=== PATIENT | male | born 1940 | race Caucasian/White ===

== ENCOUNTER 2018-07-11 10:08 | Inpatient (IN) | payer MEDICARE, OTHER ==
[~2018-07-11] VITALS: Ht 175.3 cm; Wt 85.9 kg
[2018-07-11] MEDS ORDERED: IV NORMAL SALINE 1,000ML 1,000 ML IV SCH (10:12)
[2018-07-11 10:32] LABS: BASO # 0.1 x10^3/uL (0.0-0.2); BASO % 1 % (0-3); EOS # 0.1 x10^3/uL (0.0-0.7); EOS % 1 % (0-3); HEMATOCRIT 45.7 % (39.0-53.0); HEMOGLOBIN 15.6 g/dL (13.0-17.5); LYMPH # 2.6 x10^3/uL (1.0-4.8); LYMPH % 33 % (24-48); MEAN CORPUSCULAR HEMOGLOBIN 30 pg (25-35); MEAN CORPUSCULAR HGB CONC 34 g/dL (31-37); MEAN CORPUSCULAR VOLUME 88 fL (79-100); MONO # 0.8 x10^3/uL (0.0-1.1); MONO % 10 % (0-9); NEUT # 4.1 x10^3uL (1.8-7.7); NEUT % 54 % (31-73); PLATELET COUNT 273 x10^3/uL (140-400); RED BLOOD COUNT 5.21 x10^6/uL (4.30-5.70); RED CELL DISTRIBUTION WIDTH 14.1 % (11.5-14.5); WHITE BLOOD COUNT 7.7 x10^3/uL (4.0-11.0)
--- NOTE | 2018-07-11 10:35 | PHYS DOC ---
Adult General Chief Complaint Chief Complaint: DIZZY/LIGHT HEADED HPI HPI Patient is a 78 year old male who presents with complaint of dizziness. Patient states that his symptoms are approximately 30 minutes ago. Patient states that while eating breakfast he suddenly felt very dizzy and felt like he was going to pass out. States that this feeling has continued since onset. Also notes that he has been having intermittent pain and tingling in his left upper extremity which seems to have worsened since onset of symptoms. Admits to previous history of coronary artery disease and has had 2 coronary stents placed in the past. Does have history of left bundle branch block. Denies any chest pain, shortness of breath, diaphoresis, or nausea with symptoms currently. 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 Has not taking medications since onset. States that he is currently on Plavix but no other blood thinners. Review of Systems Review of Systems Constitutional: Denies fever or chills [] Eyes: Denies change in visual acuity, redness, or eye pain [] HENT: Denies nasal congestion or sore throat [] Respiratory: Denies cough or shortness of breath [] Cardiovascular: Dizziness, near syncope, denies chest pain or edema[] GI: Denies abdominal pain, nausea, vomiting, bloody stools or diarrhea [] : Denies dysuria or hematuria [] Musculoskeletal: Denies back pain or joint pain [] Integument: Denies rash or skin lesions [] Neurologic: Numbness and tingling in left upper extremity, denies headache or focal weakness [] All other systems were reviewed and found to be within normal limits, except as documented in this note. Current Medications Current Medications Current Medications Medications (Trade) Dose Ordered Sig/[facility] Start Time Stop Time Status Last Admin Dose Admin Sodium Chloride 1,000 ml @ 125 mls/hr Q8H 07/11/18 10:12 07/11/18 18:11 UNV Physical Exam Physical Exam Constitutional: Alert, afebrile, no acute distress. [] HENT: Normocephalic, atraumatic, bilateral external ears normal, oropharynx moist, no oral exudates, nose normal. [] Eyes: PERRLA, EOMI, conjunctiva normal, no discharge. [] Neck: Normal range of motion, no tenderness, supple, no stridor. [] Cardiovascular: Bradycardia, regular rhythm, no murmur [] Lungs & Thorax: Bilateral breath sounds clear to auscultation [] Abdomen: Bowel sounds normal, soft, no tenderness, no masses, no pulsatile masses. [] Skin: Warm, dry, no erythema, no rash. [] Back: No tenderness, no CVA tenderness. [] Extremities: No tenderness, no cyanosis, no clubbing, ROM intact, no edema. [] Neurologic: Alert and oriented X 3, normal motor function, normal sensory function, no focal deficits noted. [] Current Patient Data Vital Signs Vital Signs Date Time Temp Pulse Resp B/P (MAP) Pulse Ox O2 Delivery O2 Flow Rate FiO2 07/11/18 10:37 51 20 95 Room Air Lab Results Laboratory Tests Test 07/11/18 10:14 White Blood Count 7.7 x10^3/uL Red Blood Count 5.21 x10^6/uL Hemoglobin 15.6 g/dL Hematocrit 45.7 % Mean Corpuscular Volume 88 fL Mean Corpuscular Hemoglobin 30 pg Mean Corpuscular Hemoglobin Concent 34 g/dL Red Cell Distribution Width 14.1 % Platelet Count 273 x10^3/uL Neutrophils (%) (Auto) 54 % Lymphocytes (%) (Auto) 33 % Monocytes (%) (Auto) 10 % Eosinophils (%) (Auto) 1 % Basophils (%) (Auto) 1 % Neutrophils # (Auto) 4.1 x10^3uL Lymphocytes # (Auto) 2.6 x10^3/uL Monocytes # (Auto) 0.8 x10^3/uL Eosinophils # (Auto) 0.1 x10^3/uL Basophils # (Auto) 0.1 x10^3/uL Prothrombin Time 11.0 SEC Prothromb Time International Ratio 1.1 Activated Partial Thromboplast Time 26 SEC Sodium Level 141 mmol/L Potassium Level 4.5 mmol/L Chloride Level 104 mmol/L Carbon Dioxide Level 31 mmol/L Anion Gap 6 Blood Urea Nitrogen 23 mg/dL Creatinine 1.2 mg/dL Estimated GFR (Cockcroft-Gault) 58.9 BUN/Creatinine Ratio 19 Glucose Level 109 mg/dL Calcium Level 9.6 mg/dL Magnesium Level 2.0 mg/dL Total Bilirubin 0.7 mg/dL Aspartate Amino Transf (AST/SGOT) 29 U/L Alanine Aminotransferase (ALT/SGPT) 24 U/L Alkaline Phosphatase 46 U/L Creatine Kinase 198 U/L Creatine Kinase MB (Mass) 4.9 ng/mL Creatine Kinase MB Relative Index 2.5 % Troponin I Quantitative < 0.017 ng/mL Total Protein 7.4 g/dL Albumin 4.2 g/dL Albumin/Globulin Ratio 1.3 Current Medications Medications (Trade) Dose Ordered Sig/Keila Route PRN Reason Start Time Stop Time Status Last Admin Dose Admin Sodium Chloride 1,000 ml @ 125 mls/hr Q8H IV 07/11/18 10:12 07/11/18 18:11 07/11/18 10:51 EKG EKG Interpreted by me: Heart rate 49, sinus bradycardia, left bundle branch block, no acute ST changes.[] Radiology/Procedures Radiology/Procedures [address] [address] IMAGING REPORT Signed PATIENT: HEENA BURCH ACCOUNT: [id number] : 1940 LOCATION: ER AGE: 78 SEX: M EXAM STATUS: REG ER ORD. PHYSICIAN: ANYA BENITEZ MD REASON: Dizziness, lightheaded, left arm tingling PROCEDURE: CT HEAD WO CONTRAST CT HEAD INDICATION: Dizziness, lightheaded, left arm tingling COMPARISON: None Available. Exposure: One or more of the following individualized dose reduction techniques were utilized for this examination: 1. Automated exposure control 2. Adjustment of the mA and/or kV according to patient size 3. Use of iterative reconstruction technique TECHNIQUE: 5 mm contiguous axial images were obtained from the skull base to the vertex in both bone and soft tissue algorithm. FINDINGS: Mild bilateral periventricular white matter hypodensities likely chronic small vessel ischemic disease. No evidence of acute intracranial hemorrhage. No extra-axial fluid collections. No mass effect or midline shift. Ventricular size is appropriate. Basal cisterns are patent. No fractures identified.Carbone-white differentiation is preserved.Globes and orbits are within normal limits. Paranasal sinuses and mastoid air cells are clear. IMPRESSION: No acute intracranial findings. Electronically signed by: Cedric Rubin MD (07/11/2018 10:54 AM) [facility] DICTATED AND SIGNED BY: CEDRIC RUBIN MD DATE: 07/11/18 1054 CC: ANYA BENITEZ MD; PCP,UNKNOWN ~ [place] [address] IMAGING REPORT Signed PATIENT: HEENA BURCH ACCOUNT: [id number] : 1940 LOCATION: ER AGE: 78 SEX: M EXAM STATUS: REG ER ORD. PHYSICIAN: ANYA BENITEZ MD REASON: Dizziness, lightheaded, left arm tingling PROCEDURE: PORTABLE CHEST 1V EXAM: CHEST 1 VIEW History: Dizziness, lightheadedness COMPARISON: None available. TECHNIQUE: Single portable radiograph of the chest FINDINGS: The cardiac silhouette is unremarkable. The lungs are clear bilaterally. The costophrenic sulci are clear and well demarcated. IMPRESSION: No radiographic evidence of an acute cardiopulmonary process. Electronically signed by: Cedric Rubin MD (07/11/2018 10:56 AM) [facility] DICTATED AND SIGNED BY: CEDRIC RUBIN MD DATE: 07/11/18 105 CC: ANYA BENITEZ MD; PCP,UNKNOWN ~ [] Course & Med Decision Making Course & Med Decision Making Pertinent Labs and Imaging studies reviewed. (See chart for details) Patient was started on IV fluids in the emergency department. Initial lab work and imaging show no apparent acute abnormality, however patient does note that he is continuing to feel dizziness symptoms at this time. Given patient's cardiac history, I feel the most appropriate the patient be admitted to the hospital for rule out of acute cardiac process and for additional neurology consult. I spoke with Dr. Ambriz of cardiology who agreed with initial assessment and will follow with patient in hospital. I also spoke with Dr. Vela of neurology who agreed to follow with patient in hospital for evaluation. Patient admitted to Dr. Woods. Rin Disclaimer Rin Disclaimer This electronic medical record was generated, in whole or in part, using a voice recognition dictation system. Departure Departure: Impression: Primary Impression: Near syncope Additional Impressions: History of coronary artery disease Bradycardia History of left bundle branch block Disposition: ADMITTED INPATIENT Admitting Physician: Other Condition: STABLE Referrals: PCP,UNKNOWN (PCP) Problem Qualifiers ANYA BENITEZ MD Jul 11, 2018 10:35
[2018-07-11 10:57] LABS: ALBUMIN 4.2 g/dL (3.4-5.0); ALBUMIN/GLOBULIN RATIO 1.3 (1.0-1.7); CALCIUM 9.6 mg/dL (8.5-10.1); CREATININE 1.2 mg/dL (0.7-1.3); GFR 58.9; POTASSIUM 4.5 mmol/L (3.5-5.1); TOTAL BILIRUBIN 0.7 mg/dL (0.2-1.0); TOTAL PROTEIN 7.4 g/dL (6.4-8.2)
--- NOTE | 2018-07-11 10:57 | RAD ---
CT HEAD INDICATION: Dizziness, lightheaded, left arm tingling COMPARISON: None Available. Exposure: One or more of the following individualized dose reduction techniques were utilized for this examination: 1. Automated exposure control 2. Adjustment of the mA and/or kV according to patient size 3. Use of iterative reconstruction technique TECHNIQUE: 5 mm contiguous axial images were obtained from the skull base to the vertex in both bone and soft tissue algorithm. FINDINGS: Mild bilateral periventricular white matter hypodensities likely chronic small vessel ischemic disease. No evidence of acute intracranial hemorrhage. No extra-axial fluid collections. No mass effect or midline shift. Ventricular size is appropriate. Basal cisterns are patent. No fractures identified.Carbone-white differentiation is preserved.Globes and orbits are within normal limits. Paranasal sinuses and mastoid air cells are clear. IMPRESSION: No acute intracranial findings. Electronically signed by: Cedric Rubin MD (07/11/2018 10:54 AM) [facility]
--- NOTE | 2018-07-11 10:58 | RAD ---
EXAM: CHEST 1 VIEW History: Dizziness, lightheadedness COMPARISON: None available. TECHNIQUE: Single portable radiograph of the chest FINDINGS: The cardiac silhouette is unremarkable. The lungs are clear bilaterally. The costophrenic sulci are clear and well demarcated. IMPRESSION: No radiographic evidence of an acute cardiopulmonary process. Electronically signed by: Cedric Rubin MD (07/11/2018 10:56 AM) [facility]
[2018-07-11] MEDS: IV NORMAL SALINE 1,000ML 1,000 ML IV SCH (12:50)
[2018-07-11] MEDS ORDERED: ONDANSETRON PF 4 MG/2 ML VIAL. IV PRN (13:00)
[2018-07-11] MEDS ORDERED: NITROGLYCERIN SUBLINGUAL 0.4 MG BOTTLE OF 25. SL PRN ×2 (13:00→17:15)
[2018-07-11] MEDS ORDERED: ACETAMINOPHEN 325 MG TABLET PO PRN (13:00)
[2018-07-11 13:20] VITALS: BP 164/79
[2018-07-11] MEDS: STIOLTO RESPIMAT INHALER INH SCH (14:00)
[2018-07-11] MEDS ORDERED: MONT10TA9 PO (14:34)
[2018-07-11] MEDS ORDERED: MECLIZINE 12.5 MG TABLET. PO PRN (15:00)
[2018-07-11] MEDS ORDERED: IOHEXOL 350 MG/ML 100 ML VIAL. IV ONE (15:15)
[2018-07-11] MEDS ORDERED: GLUC100018 PO (15:17)
[2018-07-11] MEDS ORDERED: CRESTOR20 MG PO (15:17)
[2018-07-11] MEDS ORDERED: Fish Oil (15:17)
[2018-07-11] MEDS ORDERED: CLOP75TA57 PO (15:17)
[2018-07-11] MEDS ORDERED: DICY20TA3 PO (15:17)
[2018-07-11] MEDS ORDERED: MULT1TAB52 PO (15:17)
[2018-07-11] MEDS ORDERED: MELA3TAB2 PO (15:17)
[2018-07-11] MEDS ORDERED: ESCITALOPRAM OX10 MG PO (15:17)
[2018-07-11] MEDS ORDERED: NITR0.4T22 SL (15:17)
[2018-07-11] MEDS ORDERED: FLUT16SP21 NS (15:17)
[2018-07-11] MEDS ORDERED: MAGN400C PO (15:17)
[2018-07-11] MEDS ORDERED: FENO145T32 PO (15:17)
[2018-07-11] MEDS ORDERED: ISOS20TA2 PO (15:17)
[2018-07-11] MEDS ORDERED: BUSP15TA PO (15:17)
[2018-07-11] MEDS ORDERED: CHLOR TABS (15:17)
--- NOTE | 2018-07-11 15:49 | PDOC ---
PROVIDER NOTE PROVIDER NOTE PROVIDER NOTE CARDIOLOGY CONSULT NOTE: REASON FOR CONSULTATION: DIZZINESS, LBBB HPI: 78 y.o male with pmhx as noted below presenting with dizziness. He was eating breakfast with his family and apparently had a sudden episode of feeling unsteady. This continued until arrival to the ER. No obvious arrhythmias noted thus far. No associated chest pain, dyspnea, orthopnea or PND. Patient denies prior such symptoms but his states that this happened a year agoa. Prior CAD s/p PCI and these symptoms are similar but no exactly like these symptoms. At baseline he leads a sedentary life. Had a stress test in 2018 which apparently was normal. He has a known LBBB and known carotid disease. Pmhx: 1. CAD 2. HTN 3. PAD 4. Dyslipidemia 5. TBI Sochx: No alcohol, tob or illicits. Retired, and lives in [place]. ROS: As noted above. NKDA Current CV meds: Plavix, Crestor, Imdur PHYSICAL EXAM: Constitutional: Well developed, well nourished, no acute distress, non-toxic appearance, positive interaction, playful. HENT: Normocephalic, atraumatic, bilateral external ears normal, oropharynx moist, no oral exudates, nose normal. Eyes: PERLL, EOMI, conjunctiva normal, no discharge. Neck: Normal range of motion, no tenderness, supple, no stridor. Bilateral carotid bruits. Cardiovascular: Normal heart rate, normal rhythm, no murmurs, no rubs, no gallops. Thorax and Lungs: Normal breath sounds, no respiratory distress, no wheezing, no chest tenderness, no retractions, no accessory muscle use. Abdomen: Bowel sounds normal, soft, no tenderness, no masses, no pulsatile masses. Skin: Warm, dry, no erythema, no rash. Back: No tenderness, no CVA tenderness. Extremeties: Intact distal pulses, no tenderness, no cyanosis, no clubbing, ROM intact, no edema. Musculoskeletal: Good ROM in all major joints, no tenderness to palpation or major deformities noted. Neurologic: Alert and oriented X 3, normal motor function, normal sensory function, no focal deficits noted. Psychologic: Affect normal, judgement normal, mood normal. Labs/Diagnostic testing Head CT negative EKG with SR and LBBB Trop negative. Impression: 1. Dizziness with LBBB - Etiology unclear - no obvious arrhythmia noted. DDx is hypotension, bradycardia or anxiety (patient's family reports increased anxiety , forgetfulness) 2. HTN 3. CAD Plan: 1. Hold home imdur 2. Check orthostatics 3. Obtain records from [facility] [place] 4. Continue telemetry. No acute ischemia noted, EKG stable. ABDULLAHI OBRIEN MD Jul 11, 2018 15:49
[2018-07-11 15:50] VITALS: BP 146/78
--- NOTE | 2018-07-11 18:00 | EKG ---
[address] [address] Test Date: 2018-07-11 Test Time: 10:20:49 Pat Name: HEENA BURCH Department: Room: 103 A Gender: M [employer]: : 1940 Requested By: ANYA BENITEZ Order Number: [id number] Reading MD: Leonel Ambriz MD Measurements Intervals [place] Rate: 50 P: 26 SD: 182 QRS: 10 QRSD: 152 T: 170 QT: 484 QTc: 440 Interpretive Statements SINUS RHYTHM LBBB Electronically Signed On 07-15-2018 15:50:03 CDT by Leonel Ambriz MD
--- NOTE | 2018-07-11 18:46 | RAD ---
EXAM: CT angiogram of the head and neck with contrast. DATE: 07/11/2018 3:19 PM INDICATION: Dizziness, lightheaded, headache, left extremity pain and numbness TECHNIQUE: Axial CTA angiogram of the head and neck was obtained after IV bolus administration of 75 mL Omni 350. MIP Coronal and sagittal reconstructions. Angio package applied including multiplanar reformat reconstructions and 3-D MIP reconstructions. Shaded surface display of 3-D reconstructions also performed. These are all manipulated at separate CT workstation and transferred to the PACS workstation where they are reviewed. COMPARISON: CT head same day. FINDINGS: CTA HEAD: The visualized distal internal carotid arteries, anterior and middle cerebral arteries are patent and normal caliber. Approximately 50 percent stenosis of the cavernous segments of the bilateral ICAs. The distal vertebral arteries, basilar artery, and posterior cerebral arteries are patent and normal caliber. No aneurysm or arteriovenous malformation is seen. The brain parenchyma is normal in attenuation. No intra- or extra-axial mass or fluid collection. No hyperdense intracranial hemorrhage. The ventricles are normal in size and configuration without midline shift. There is normal wasserman-white matter differentiation. The basal cisterns are patent. The visualized paranasal sinuses are well aerated. The mastoid air cells are clear. The visualized portions of the orbits are normal. No aggressive osseous lesion or fracture. CTA NECK: Right carotid: Mild narrowing of the mid right common carotid artery. Severe approximately 80 percent narrowing of the right ICA just past its origin. The right external carotid artery is patent. Left carotid: The left common carotid artery is patent and normal caliber. Approximately 50 percent narrowing of the left ICA just past its origin. The left external carotid artery is patent. Right vertebral: At least 50 percent stenosis of the right vertebral artery at its origin. Approximately 50 percent narrowing of the V2 segment of the right vertebral artery (image 77, series 3). Left vertebral: The left vertebral artery is patent and normal caliber. Mild atherosclerosis of the visualized thoracic aorta and its branches. The origins of the brachiocephalic and subclavian arteries are normal. No cervical lymphadenopathy. The thyroid gland is normal. The parotid and submandibular glands are normal. The visualized aerodigestive tract is unremarkable. Moderate multilevel degenerative changes of the visualized spine. Scattered sclerotic osseous foci most commonly related to bone islands in the absence of known primary malignancy. Moderate emphysematous changes. IMPRESSION: 1. No aneurysm. No intracranial arterial occlusion. 2. Approximately 50 percent stenosis of the cavernous segments of the bilateral ICAs. 3. Severe approximately 80 percent stenosis of the right ICA just past its origin. 4. Approximately 50 percent stenosis of the left ICA just past its origin. 5. At least 50 percent stenosis of the right vertebral artery at its origin. Approximately 50 percent stenosis of the V2 segment of the right vertebral artery. PQRS Compliance Statement - Stenosis calculations for CT, MR and conventional angiography are based upon measurement of the distal ICA diameter in accordance with the NASCET methodology. Stenosis calculations for carotid ultrasound studies are derived from validated velocity criteria which are known to correlate with the NASCET methodology. PQRS Compliance Statement: One or more of the following individualized dose reduction techniques were utilized for this examination: 1. Automated exposure control 2. Adjustment of the mA and/or kV according to patient size 3. Use of iterative reconstruction technique Electronically signed by: Josue Smith MD (07/11/2018 6:43 PM) [facility]
[2018-07-11 19:54] VITALS: BP 165/75
[2018-07-11] MEDS ORDERED: CHLOR SCH (21:00)
[2018-07-11] MEDS ORDERED: ATORVASTATIN CALCIUM 20 MG TABLET PO SCH (21:00)
[2018-07-11] MEDS ORDERED: MONTELUKAST 10 MG TABLET. PO SCH (21:00)
[2018-07-11] MEDS ORDERED: MELATONIN 3 MG TABLET PO SCH (21:00)
[2018-07-11] MEDS: OMEGA-3 FATTY ACIDS/FISH OIL 1,000 MG CAPSULE. PO SCH (21:07)
[2018-07-11] MEDS: DICYCLOMINE HCL 20 MG TABLET PO SCH (21:09)
[2018-07-11] MEDS: GLUCOSAMINE 500 MG CAPSULE PO SCH (21:09)
[2018-07-11] MEDS: busPIRone 15 MG TABLET. PO SCH (21:10)
[2018-07-11] MEDS: MAGNESIUM OXIDE 400 MG TABLET PO SCH (21:10)
[2018-07-11] MEDS: FLUTICASONE 50MCG/NASAL SPRAY 16GM BOTTLE. NS SCH (21:12)
[2018-07-11 22:21] VITALS: BP 153/83
[2018-07-11 22:22] VITALS: BP 134/63
[2018-07-11 22:23] VITALS: BP 123/70
[2018-07-12] MEDS: IV NORMAL SALINE 1,000ML 1,000 ML IV SCH ×2 (00:32→04:50)
--- NOTE | 2018-07-12 01:04 | CONS ---
DATE OF CONSULTATION: 07/11/2018 NEUROLOGY CONSULTATION REASON FOR CONSULTATION: Dizziness and lightheadedness. HISTORY OF PRESENT ILLNESS: This is a 78-year-old male who is a visitor from [place]. The patient was admitted through Emergency Room after he presented with sudden onset of dizziness described as lightheadedness and tendency to fall or going to pass out. The patient stated these symptoms started around 10:30 this morning when he was eating his breakfast and all of a sudden, he started experiencing vertigo described as spinning and lightheadedness. He did not sustain any falls, but he felt unsteady on his feet when he changed his body positions from sitting to standing positions. On arrival to the Emergency Room, the patient was found to be alert and oriented. The patient is known to have coronary artery disease, required PCI x 2 in 2004. The patient denies shortness of breath, palpitation, dysarthria, or dysphagia. He also complains of a dull chest pain radiating to the left upper extremity and associated with numbness and paresthesia of the left hand more prominent affecting the fourth and fifth fingers. The patient stated his chest pain has improved, but he continues to have dizziness upon rising and changing his body positions. He denies nausea or vomiting, dysarthria, dysphagia, weakness, or visual disturbances. According to his , the patient has been anxious because he forgot his inhaler in [place]. The patient also complains of lower back pain, bilateral knee pain and he related that to severe arthritis. Initial nonenhanced head CT scan revealed no evidence of intracranial process. According to the patient, he had brain MRI at [facility] in [place] 2 years ago, which showed what he describes small vessel ischemic changes. PAST MEDICAL HISTORY: Significant for NIXON, COPD, posttraumatic stress disorders, left bundle-branch block, coronary artery disease, hypertension, hyperlipidemia, and chronic lower back pain. History of skin cancer. PAST SURGICAL HISTORY: Significant for 2 stent placements approximately 2 years ago and lumbosacral spine fusion in 2012. Status post bilateral knee arthroscopy and penile implant along with hernia repair. FAMILY HISTORY: His father had emphysema and dementia. SOCIAL HISTORY: The patient denies smoking, alcohol drinking, or illicit drug use. CURRENT HOME MEDICATIONS: Pantoprazole 40 mg at bedtime, multivitamins, TriCor 145 mg daily, Celexa 20 mg daily, Plavix 75 mg p.o. daily, Lipitor 80 mg p.o. daily, fish oil 2000 mg twice daily, Singulair 10 mg at bedtime, melatonin 6 mg at bedtime, glucosamine sulfate 1500 mg b.i.d., Flonase 2 nasal sprays twice daily, Bentyl 20 mg b.i.d., buspirone 15 mg b.i.d., nitroglycerin 0.5 mg sublingual p.r.n. ALLERGIES: No known drug allergies. REVIEW OF SYSTEMS: A 10-point review of systems as mentioned above in history of present illness, otherwise unremarkable. PHYSICAL EXAMINATION: GENERAL: Well-developed, well-nourished male not in any acute distress. He weighs 171 pounds. VITAL SIGNS: Blood pressure 146/79, respiratory rate 20, pulse is 50 and regular, temperature 97.2, oxygen saturation 96% on room air. HEENT: Normocephalic, atraumatic, otherwise unremarkable. NECK: Supple. Negative for carotid bruit, lymphadenopathy, or thyromegaly. LUNGS: Clear to A and P. CARDIOVASCULAR: Regular rate and rhythm, normal S1, S2. There is no S3, S4, or murmur. ABDOMEN: Soft. Bowel sounds positive. EXTREMITIES: Negative for cyanosis, clubbing, pitting edema. NEUROLOGIC: Mental status: The patient is alert and oriented x 2. The speech is fluent. There is no language dysfunction. The patient recalls 2/3 immediately and after 1 and 3 minutes. Judgment and abstracting thinking are normal. The patient denies hallucination or delusion. Cranial nerves: Visual crespo are full. The pupils are reactive to light and accommodation. The extraocular movements are intact. There is no nystagmus. There is no facial motor or sensory deficit. Hearing is mildly diminished bilaterally. The palate is elevated symmetrically. Sternocleidomastoid muscles are powerful bilaterally. The patient shrugs his shoulders symmetrically, protrudes his tongue in the midline without fasciculation or atrophy. Motor examination: No focal muscle bulk is seen. The tone is normal. The strength is 5/5 throughout. Sensory examination: Normal pinprick, light touch, vibratory and position senses. Deep tendon reflexes are symmetric and hypoactive with absent Achilles responses. Gait: The stance is slightly unsteady. DIAGNOSTIC DATA: Nonenhanced head CT scan revealed no evidence of acute intracranial process. Chest x-ray revealed no evidence of acute cardiopulmonary process. LABORATORY DATA: CBC revealed white blood cells of 7700, hemoglobin 15.6, hematocrit 45.7, platelet count 273,000. Chemistry revealed sodium of 141, potassium 4.5, chloride 104, CO2 of 31, BUN 23, creatinine 1.2, glucose 109, calcium 9.6, magnesium 2. Liver enzymes are normal, CK-MB is high at 4.9, but troponin level is normal. PT is 11, INR 1.1, and PTT is 26. IMPRESSION: 1. Acute onset of dizziness and lightheadedness, aggravated by changing body positions from lying to sitting and from sitting to standing positions, etiology uncertain, rule out orthostatic hypotension or possible cardiac arrhythmias - bradycardia. 2. 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 RECOMMENDATIONS: 1. Continue with current home medications including Plavix. The patient has declined aspirin as his one first child from complication of aspirin. 2. We will obtain CT angio of the neck and head to rule out vascular disease or stenosis. 3. We will check for orthostatic changes. 4. Cardiac consultations. 5. We will start him on meclizine at 25 mg t.i.d. p.r.n. for dizziness. 6. We will obtain medical records from [place]. M Salinas HELTON MD DR: REI/cruz JOB#: [id number] / [id number]
[2018-07-12 04:58] VITALS: BP 153/76
[2018-07-12 06:51] LABS: GFR 72.6; MAGNESIUM 1.9 mg/dL (1.8-2.4); POTASSIUM 4.3 mmol/L (3.5-5.1)
[2018-07-12 06:52] LABS: BASO # 0.1 x10^3/uL (0.0-0.2); BASO % 1 % (0-3); EOS # 0.1 x10^3/uL (0.0-0.7); EOS % 2 % (0-3); HEMATOCRIT 42.2 % (39.0-53.0); HEMOGLOBIN 14.4 g/dL (13.0-17.5); LYMPH # 2.5 x10^3/uL (1.0-4.8); LYMPH % 41 % (24-48); MEAN CORPUSCULAR HEMOGLOBIN 30 pg (25-35); MEAN CORPUSCULAR HGB CONC 34 g/dL (31-37); MEAN CORPUSCULAR VOLUME 87 fL (79-100); MONO # 0.6 x10^3/uL (0.0-1.1); MONO % 10 % (0-9); NEUT # 2.8 x10^3uL (1.8-7.7); NEUT % 46 % (31-73); PLATELET COUNT 229 x10^3/uL (140-400); RED BLOOD COUNT 4.86 x10^6/uL (4.30-5.70); RED CELL DISTRIBUTION WIDTH 14.3 % (11.5-14.5); WHITE BLOOD COUNT 6.2 x10^3/uL (4.0-11.0)
[2018-07-12 08:42] VITALS: BP 149/83
[2018-07-12] MEDS ORDERED: ATORVASTATIN CALCIUM 20 MG TABLET PO SCH (09:00)
[2018-07-12] MEDS ORDERED: FENOFIBRATE NANOCRYSTALLIZED 145 MG TABLET PO SCH (09:00)
[2018-07-12] MEDS ORDERED: IPRATROPIUM BROMIDE 0.06% NASAL SPRAY 15ML BOTTLE NS SCH (09:00)
[2018-07-12] MEDS ORDERED: CLOPIDOGREL BISULFATE 75 MG TABLET PO SCH (09:00)
[2018-07-12] MEDS ORDERED: CITALOPRAM 20 MG TABLET. PO SCH (09:00)
[2018-07-12] MEDS ORDERED: MULTIVITAMIN with MINERAL TABLET. PO SCH (09:00)
[2018-07-12] MEDS: OMEGA-3 FATTY ACIDS/FISH OIL 1,000 MG CAPSULE. PO SCH (09:29)
[2018-07-12] MEDS ORDERED: IPRATRPIUM/ALBUTEROL 0.5/2.5MG 3 ML NEBU. NEB SCH (09:30)
[2018-07-12] MEDS: FLUTICASONE 50MCG/NASAL SPRAY 16GM BOTTLE. NS SCH (09:31)
[2018-07-12] MEDS: DICYCLOMINE HCL 20 MG TABLET PO SCH (09:36)
[2018-07-12] MEDS: busPIRone 15 MG TABLET. PO SCH (09:36)
[2018-07-12] MEDS: MAGNESIUM OXIDE 400 MG TABLET PO SCH (09:36)
[2018-07-12] MEDS: GLUCOSAMINE 500 MG CAPSULE PO SCH (09:37)
[2018-07-12] MEDS: STIOLTO RESPIMAT INHALER INH SCH (09:39)
--- NOTE | 2018-07-12 09:43 | PDOC ---
YESICA DUMONT TRACK HELPER 07/12/18 0943: PROGRESS NOTES Diagnosis Problem Problems Medical Problems: (1) Bradycardia Status: Acute (2) History of coronary artery disease Status: Acute (3) History of left bundle branch block Status: Acute (4) Near syncope Status: Acute Assessment Problems Medical Problems: (1) Bradycardia Status: Acute (2) History of coronary artery disease Status: Acute (3) History of left bundle branch block Status: Acute (4) Near syncope Status: Acute 1. Dizziness with LBBB - no significant orthostasis. Sinus bradycardia by monitor. Ambulate for chronotropic insufficiency. 2. Carotid stenosis - MARCE 80% by CT. Will need vascular referral. 2. HTN - controlled. 3. CAD - recent stress test , call for records to review. angina free. Continue medical therapy. No cp with discontinuance of Imdur. Subjective better but still some lightheadedness when up on feet. no chest pain, no dyspnea, no palpitations. concerned about heart rate being low and states normally runs 60s. Objective Vital Signs Date Time Temp Pulse Resp B/P (MAP) Pulse Ox O2 Delivery O2 Flow Rate FiO2 07/12/18 08:42 50 20 149/83 (105) 94 Room Air 07/12/18 04:58 97.9 Intake and Output 07/12/18 07:00 Intake Total 2283 ml Output Total 3300 ml Balance -1017 ml Intake Oral 720 ml IV Total 1563 ml Output Urine Total 3300 ml Abdomen: Normal bowel sounds, Soft Heart: Normal S1, Normal S2, Other (bradycardic, no gallops,clicks or rubs) Extremities: No cyanosis, No edema General: Alert, Oriented X3, Cooperative, No acute distress Lungs: Clear to auscultation Neck: Other (bilateral carotid bruits, R>L) Neuro: Normal speech Psych/Mental Status: Mental status NL, Mood NL Review of Relevant I have reviewed the following items alvarez (where applicable) has been applied. Labs Laboratory Tests Test 07/11/18 10:14 07/11/18 13:55 07/11/18 17:45 07/12/18 06:12 White Blood Count 7.7 x10^3/uL (4.0-11.0) 6.2 x10^3/uL (4.0-11.0) Red Blood Count 5.21 x10^6/uL (4.30-5.70) 4.86 x10^6/uL (4.30-5.70) Hemoglobin 15.6 g/dL (13.0-17.5) 14.4 g/dL (13.0-17.5) Hematocrit 45.7 % (39.0-53.0) 42.2 % (39.0-53.0) Mean Corpuscular Volume 88 fL (79-100) 87 fL (79-100) Mean Corpuscular Hemoglobin 30 pg (25-35) 30 pg (25-35) Mean Corpuscular Hemoglobin Concent 34 g/dL (31-37) 34 g/dL (31-37) Red Cell Distribution Width 14.1 % (11.5-14.5) 14.3 % (11.5-14.5) Platelet Count 273 x10^3/uL (140-400) 229 x10^3/uL (140-400) Neutrophils (%) (Auto) 54 % (31-73) 46 % (31-73) Lymphocytes (%) (Auto) 33 % (24-48) 41 % (24-48) Monocytes (%) (Auto) 10 % (0-9) 10 % (0-9) Eosinophils (%) (Auto) 1 % (0-3) 2 % (0-3) Basophils (%) (Auto) 1 % (0-3) 1 % (0-3) Neutrophils # (Auto) 4.1 x10^3uL (1.8-7.7) 2.8 x10^3uL (1.8-7.7) Lymphocytes # (Auto) 2.6 x10^3/uL (1.0-4.8) 2.5 x10^3/uL (1.0-4.8) Monocytes # (Auto) 0.8 x10^3/uL (0.0-1.1) 0.6 x10^3/uL (0.0-1.1) Eosinophils # (Auto) 0.1 x10^3/uL (0.0-0.7) 0.1 x10^3/uL (0.0-0.7) Basophils # (Auto) 0.1 x10^3/uL (0.0-0.2) 0.1 x10^3/uL (0.0-0.2) Prothrombin Time 11.0 SEC (9.4-11.4) Prothromb Time International Ratio 1.1 (0.9-1.1) Activated Partial Thromboplast Time 26 SEC (23-33) Sodium Level 141 mmol/L (136-145) 142 mmol/L (136-145) Potassium Level 4.5 mmol/L (3.5-5.1) 4.3 mmol/L (3.5-5.1) Chloride Level 104 mmol/L (98-107) 108 mmol/L (98-107) Carbon Dioxide Level 31 mmol/L (21-32) 28 mmol/L (21-32) Anion Gap 6 (6-14) 6 (6-14) Blood Urea Nitrogen 23 mg/dL (8-26) 19 mg/dL (8-26) Creatinine 1.2 mg/dL (0.7-1.3) 1.0 mg/dL (0.7-1.3) Estimated GFR (Cockcroft-Gault) 58.9 72.6 BUN/Creatinine Ratio 19 (6-20) Glucose Level 109 mg/dL (70-99) 100 mg/dL (70-99) Calcium Level 9.6 mg/dL (8.5-10.1) 9.0 mg/dL (8.5-10.1) Magnesium Level 2.0 mg/dL (1.8-2.4) 1.9 mg/dL (1.8-2.4) Total Bilirubin 0.7 mg/dL (0.2-1.0) Aspartate Amino Transf (AST/SGOT) 29 U/L (15-37) Alanine Aminotransferase (ALT/SGPT) 24 U/L (16-63) Alkaline Phosphatase 46 U/L (46-116) Creatine Kinase 198 U/L (39-308) Creatine Kinase MB (Mass) 4.9 ng/mL (0.0-3.6) Creatine Kinase MB Relative Index 2.5 % (0-4) Troponin I Quantitative < 0.017 ng/mL (0-0.055) < 0.017 ng/mL (0-0.055) < 0.017 ng/mL (0-0.055) Total Protein 7.4 g/dL (6.4-8.2) Albumin 4.2 g/dL (3.4-5.0) Albumin/Globulin Ratio 1.3 (1.0-1.7) Medications Current Medications Sodium Chloride 1,000 ml @ 125 mls/hr Q8H IV Last administered on 07/11/18at 10 :51; Start 07/11/18 at 10:12; Stop 07/11/18 at 17:28; Status DC Ondansetron HCl (Zofran) 4 mg PRN Q4HRS PRN IV NAUSEA/VOMITING; Start 07/11/18 at 13:00; Stop 07/12/18 at 12:59 Sodium Chloride 1,000 ml @ 125 mls/hr Q8H IV Last administered on 07/12/18at 00 :32; Start 07/11/18 at 12:50; Stop 07/12/18 at 12:49 Acetaminophen (Tylenol) 650 mg PRN Q4HRS PRN PO FEVER; Start 07/11/18 at 13:00 ; Stop 07/12/18 at 12:59 Nitroglycerin (Nitrostat) 0.4 mg PRN Q5MIN PRN SL CHEST PAIN; Start 07/11/18 at 13:00; Stop 07/11/18 at 17:28; Status DC Non-Formulary Medication 1 ea DAILY INH Last administered on 07/12/18at 09:39; Start 07/11/18 at 14:00 Meclizine HCl (Antivert) 25 mg PRN TID PRN PO DIZZINESS; Start 07/11/18 at 15: 00 Iohexol (Omnipaque 350 Mg/ml) 100 ml 1X ONCE IV Last administered on at 15:36; Start 07/11/18 at 15:15; Stop 07/11/18 at 15:22; Status DC Pantoprazole Sodium (Protonix) 40 mg QHS PO ; Start 07/12/18 at 21:00 Clopidogrel Bisulfate (Plavix) 75 mg DAILY PO Last administered on 07/12/18at 09 :40; Start 07/12/18 at 09:00 Nitroglycerin (Nitrostat) 0.4 mg PRN Q5MIN PRN SL CHEST PAIN; Start 07/11/18 at 17:15 Buspirone HCl (Buspar) 15 mg BID PO Last administered on 07/12/18 09:36; Start 07/11/18 at 21:00 Dicyclomine HCl (Bentyl) 20 mg BID PO Last administered on 07/12/18 09:36; Start 07/11/18 at 21:00 Citalopram Hydrobromide (CeleXA) 20 mg DAILY PO Last administered on 07/12/18 09:36; Start 07/12/18 at 09:00 Fenofibrate (Tricor) 145 mg DAILY PO Last administered on 07/12/18 09:29; Start 07/12/18 at 09:00 Fluticasone Propionate (Flonase) 2 spray BID NS Last administered on 07/12/18 09:31; Start 07/11/18 at 21:00 Glucosamine Sulfate (Glucosamine) 1,500 mg BID PO Last administered on 09:37; Start 07/11/18 at 21:00 Magnesium Oxide (Magnesium Oxide) 400 mg BID PO Last administered on 07/12/18 09:36; Start 07/11/18 at 21:00 Melatonin 6 mg QHS PO Last administered on 07/11/18 21:06; Start 07/11/18 at 21:00 Montelukast Sodium (Singulair) 10 mg QHS PO Last administered on 07/11/18 21: 07; Start 07/11/18 at 21:00 Multivitamins/ Calcium (Thera-M Plus) 1 tab DAILY PO Last administered on 09:37; Start 07/12/18 at 09:00 Atorvastatin Calcium (Lipitor) 80 mg DAILY PO ; Start 07/12/18 at 09:00; Stop at 09:00; Status DC Non-Formulary Medication ([Chlor Tabs] ) 8 mg QHS .ROUTE ; Start 07/11/18 at 21: 00; Status UNV Fish Oil (Fish Oil) 2,000 mg BID PO Last administered on 07/12/18 09:29; Start 07/11/18 at 21:00 Atorvastatin Calcium (Lipitor) 80 mg QHS PO Last administered on 07/11/18 21: 10; Start 07/11/18 at 21:00 Heparin Sodium (Porcine) (Heparin Sodium) 5,000 unit Q8HRS SQ ; Start 07/12/18 at 14:00 Ipratropium [place] (Atrovent Nasal) 2 spray BID NS ; Start 07/12/18 at 09:00; Stop 07/12/18 at 09:27; Status DC Albuterol/ Ipratropium (Duoneb) 3 ml RTBID NEB ; Start 07/12/18 at 09:30 Active Scripts Active Reported [Chlor Tabs] 8 Mg QHS Buspirone Hcl 15 Mg Tablet 15 Mg PO BID Dicyclomine Hcl 20 Mg Tablet 1 Tab PO BID NITROGLYCERIN SubLingual (Nitroglycerin) 0.4 Mg Tab.subl 0.4 Mg SL PRN Q5MIN PRN Plavix (Clopidogrel Bisulfate) 75 Mg Tablet 75 Mg PO DAILY Isosorbide Mononitrate 20 Mg Tablet 60 Mg PO DAILY Escitalopram Oxalate 10 Mg Tablet 10 Mg PO DAILY Tricor (Fenofibrate Nanocrystallized) 145 Mg Tablet 1 Tab PO DAILY Multivitamins (Multivitamin) 1 Each Tablet 1 Tab PO DAILY [Fish Oil] 2,000 Mg BID Glucosamine (Glucosamine Sulfate 2KCL) 1,000 Mg Tablet 1,500 Mg PO BID Magnesium (Magnesium Oxide) 400 Mg Capsule 500 Mg PO BID Crestor (Rosuvastatin Calcium) 20 Mg Tablet 20 Mg PO HS Fluticasone Propionate Nasal [place] (Fluticasone Propionate) 16 Gm [place].susp 2 [place] NS BID Melatonin 3 Mg Tablet 6 Mg PO QHS Montelukast Sodium Tablet (Montelukast Sodium) 10 Mg Tablet 10 Mg PO HS Vitals/I & O Vital Sign - Last 24 Hours 07/11/18 07/11/18 07/11/18 07/11/18 10:37 10:37 13:20 15:50 Temp 97.2 Pulse 51 50 54 Resp 20 20 18 B/P (MAP) 164/79 (107) 146/78 (100) Pulse Ox 95 96 95 O2 Delivery Room Air Room Air Room Air Room Air 07/11/18 07/11/18 07/11/18 07/11/18 19:50 19:54 22:21 22:22 Temp 98.0 98.2 Pulse 62 56 59 Resp 24 20 B/P (MAP) 165/75 (105) 153/83 (106) 134/63 (86) Pulse Ox 93 93 O2 Delivery Room Air Room Air Room Air 3/07/12/18 07/12/18 22:23 04:58 08:42 Temp 97.9 Pulse 57 60 50 Resp 20 20 B/P (MAP) 123/70 (87) 153/76 (101) 149/83 (105) Pulse Ox 93 94 O2 Delivery Room Air Room Air Intake and Output 07/11/18 07/11/18 07/12/18 15:00 23:00 07:00 Intake Total 480 ml 1803 ml Output Total 1600 ml 1700 ml Balance -1120 ml 103 ml ABDULLAHI OBRIEN MD 07/12/189: PROGRESS NOTES Review of Relevant Pt. seen and examined. Agree with above Carpenter General note. Reviewed telemetry - no acute events. No significant bradycardia that would warrant pacer No critical carotid disease that would cause his dizziness. I had a long discussion with the patient and his about the fact that no acute cardiac source of his dizziness has been identified. Echo w/o sign valve disease. Supportive care. Ok to DC with outpt f/u with vascular surgery and outpt event monitor. Thanks YESICA DUMONT APRN Jul 12, 2018 09:43 ABDULLAHI OBRIEN MD Jul 12, 2018 22:09
[2018-07-12 10:46] VITALS: BP_SYST 128; BP_SYST 137; BP_DIAS 67
[2018-07-12 10:47] VITALS: BP 125/72
[2018-07-12] MEDS ORDERED: ESOM40CA PO (11:02)
[2018-07-12] MEDS ORDERED: HEPARIN for SUB-Q USE 5,000 UNIT/ML VIAL. SQ SCH (14:00)
--- NOTE | 2018-07-12 14:16 | PN ---
DATE: SUBJECTIVE: The patient continues to have intermittent dizziness mainly when he changes body positions. He denies chest pain, shortness of breath or palpitation, dysarthria or dysphagia, weakness or paresthesia. OBJECTIVE: GENERAL: Well-developed, well-nourished male, not in acute distress. VITAL SIGNS: Blood pressure 149/83, respiratory rate 20, pulse range between 55-60, oxygen saturation 94% on room air. HEENT: Normocephalic, atraumatic, otherwise unremarkable. NECK: Supple. Possible low pitch bruit on the right side. Otherwise, no lymphadenopathy or thyromegaly. LUNGS: Clear to A and P. CARDIOVASCULAR: Regular rate and rhythm, normal S1, S2. ABDOMEN: Soft. Bowel sounds positive. EXTREMITIES: Negative for cyanosis, clubbing or pitting edema. NEUROLOGIC: Normal mental status and intact cranial nerves except for mild hearing loss. Motor Examination: No focal muscle bulk was seen. The tone is normal. The strength is 5/5 throughout. Sensory examination revealed normal pinprick, light touch, vibratory and position senses. Deep tendon reflexes were asymmetric without pathology responses. Gait slightly unsteady due to dizziness. DIAGNOSTIC DATA: CT angio of the neck and brain revealed no evidence of a cerebral aneurysm, but it shows 80% stenosis of the right internal carotid artery at the origin, otherwise unremarkable. LABORATORY DATA: CBC revealed white blood cells of 6.1000, hemoglobin 14.4, hematocrit 42.2, platelet count 229,000. Chemistry revealed a sodium of 142, potassium 4.3, chloride 108, CO2 of 28, BUN 19, creatinine 1, glucose 100, calcium 9. IMPRESSION: 1. Acute onset of vertigo aggravated by changing body positions with orthostatic changes. 2. The right internal carotid artery stenosis, 80% estimated by angiogram. 3. Intermittent bradycardia. 4. History of coronary artery disease, hypertension, hyperlipidemia, depression, anxiety, chronic obstructive pulmonary disease, and chronic low back pain. RECOMMENDATIONS: We will obtain a brain MRI and continue with cardiac recommendations. The patient may need a vascular surgeon consult for possible right endarterectomy. Otherwise, we will continue with current management. M Salinas HELTON MD DR: REI/cruz JOB#: [id number] / [id number]
[2018-07-12 15:10] VITALS: BP 145/78
--- NOTE | 2018-07-12 15:42 | CARD ---
MR#: [id number] Date of Study: 07/12/2018 Ordering Physician: YESICA DUMONT, Referring Physician: ALETHEA HUGHES Tech: Suri Casanova ANNI APPROVED REPORT EXAM: Two-dimensional and M-mode echocardiogram with Doppler and color Doppler. Other Information Quality : Good Technically limited study due to body habitus. INDICATION Cardiac Disease: CAD 2D DIMENSIONS RVDd3.0 (2.9-3.5cm)Left Atrium(2D)3.9 (1.6-4.0cm) IVSd1.1 (0.7-1.1cm)Aortic Root(2D)2.7 (2.0-3.7cm) LVDd4.0 (3.9-5.9cm)PWd1.1 (0.7-1.1cm) LVDs2.8 (2.5-4.0cm)FS (%) 29.9 % SV41.4 mlLVEF(%)57.6 (>50%) Aortic Valve AoV Peak Raman.148.7cm/sAoV VTI26.7cm AO Peak GR.8.8mmHgAO Mean GR.5mmHg SALLIE (VTI)3.77cm2 Mitral Valve MV E Wtmbifft56.9cm/sMV DECEL DJPU012ic MV A Jtfizuau70.4cm/sE/A Ratio0.7 Tricuspid Valve TR P. Tqblnifu997it/sRAP [id number] TR Peak Gr.84fuIxCVBZ22ksFt LEFT VENTRICLE The left ventricle is normal size. There is normal left ventricular wall thickness. The left ventricu lar systolic function is normal and the ejection fraction is within normal range. The Ejection Fracti on is 55-60%. Septal motion consistent with conduction abnormality. Grossly normal wall motion otherw ise. Transmitral Doppler flow pattern is Grade I-abnormal relaxation pattern. RIGHT VENTRICLE The right ventricle is normal size. The right ventricular systolic function is normal. ATRIA The left atrium size is normal. The right atrium is mildly dilated. The interatrial septum is intact with no evidence for an atrial septal defect or patent foramen ovale as noted on 2-D or Doppler imagi ng. AORTIC VALVE The aortic valve is calcified but opens well. Doppler and Color Flow revealed no significant aortic r egurgitation. There is no significant aortic valvular stenosis. MITRAL VALVE The mitral valve is calcified but opens well. There is no evidence of mitral valve prolapse. There is no mitral valve stenosis. Doppler and Color Flow revealed no mitral valve regurgitation noted. TRICUSPID VALVE The tricuspid valve is normal in structure and function. Doppler and Color Flow revealed trace tricus pid regurgitation. There is mild pulmonary hypertension. The PA pressure was estimated at 41 mmHg. Th ere is no tricuspid valve stenosis. PULMONIC VALVE The pulmonic valve is not well visualized. Doppler and Color Flow revealed trace pulmonic valvular re gurgitation. There is no pulmonic valvular stenosis. GREAT VESSELS The aortic root is normal in size. The ascending aorta is normal in size. The IVC is normal in size a nd collapses >50% with inspiration. PERICARDIAL EFFUSION There is no evidence of significant pericardial effusion. Critical Notification Critical Value: No <Conclusion> The left ventricular systolic function is normal and the ejection fraction is within normal range. Th e Ejection Fraction is 55-60%. Septal motion consistent with conduction abnormality. Grossly normal wall motion otherwise. Doppler and Color Flow revealed trace tricuspid regurgitation. There is mild pulmonary hypertension. The PA pressure was estimated at 41 mmHg. Signed by : Leonel Ambriz, Electronically Approved : 07/12/2018 15:42:15
--- NOTE | 2018-07-12 18:51 | HP ---
ADMIT DATE: 07/12/2018 HISTORY OF PRESENT ILLNESS: A 78-year-old male came in through the Emergency Room visiting here from [place] complaining of dizziness, lightheadedness as well as having tingling in his upper left extremity, symptoms got progressively worse. He did have some tremors in that left arm and hand, refuses to take aspirin. After eating breakfast, he had the sudden experience of lightheadedness. He did not sustain any fall, but he was extremely unsteady. He did have some dull chest pain radiating to the left upper extremity. He has a previous history of stent placements. He denied any nausea or vomiting. The patient notes he has been somewhat anxious and as noted he is treated at a [facility] in [place]. PAST MEDICAL HISTORY: Positive for NIXON, COPD, posttraumatic stress disorder, left bundle branch block, coronary artery disease, hypertension, hyperlipidemia, chronic lower back pain, history of skin cancer. PAST SURGICAL HISTORY: Two stent placements approximately 2 years ago, lumbar spine fusion, status post bilateral knee arthroscopy, penile implant. FAMILY HISTORY: Positive for emphysema and dementia. SOCIAL HISTORY: The patient denies smoking, alcohol or drug use. [facility]. MEDICATIONS: As listed including pantoprazole 40, TriCor 145, Celexa 20, Plavix 75, Lipitor 80, fish oil, Singulair 10, melatonin 6, glucosamine 1500 mg b.i.d., Flonase 2, Bentyl 20, nitroglycerin 0.5 sublingual. ALLERGIES: No known allergies. REVIEW OF SYSTEMS: As stated in the HPI. GENERAL: Lightheadedness, dizziness, some chest discomfort, some weakness on the left side of his arm and hand, more prominent affecting the fourth and fifth fingers. Denied any nausea, vomiting, diaphoresis, headaches or visual changes. PHYSICAL EXAMINATION: GENERAL: WD, WN, NAD. VITAL SIGNS: Blood pressure 150/80, respiratory rate 20, pulse 50, afebrile, oxygen saturation 96%. HEENT: The patient's head was atraumatic, normocephalic. Eyes: PERRLA without jaundice. Mouth and throat: Normal. NECK: Supple. LUNGS: Diminished, but clear. CARDIOVASCULAR: Regular sinus rhythm, S1, S2, without murmur, rub, thrill, or extra heart sound. ABDOMEN: Soft, nontender, no rebound or guarding. Positive bowel sounds, no hepatosplenomegaly was noted. EXTREMITIES: No clubbing, cyanosis or edema. NEUROLOGIC: The patient was alert and oriented x 3. Speech fluent. Cranial nerves 2-12 grossly intact. Moving all extremities well. Did cranial nerve function as well as DTRs were basically symmetrical. LABORATORY DATA: CT was unremarkable. The patient's chest x-ray revealed no evidence of acute cardiopulmonary process. Labs are basically stable including cardiac enzymes. IMPRESSION: Acute onset of dizziness, lightheadedness, aggravated by body position, bradycardia, possible orthostasis, cardiac arrhythmias, history of coronary artery disease, hyperlipidemia, post-stent placement, depression, anxiety, COPD. The patient to continue the Plavix check for orthostatic changes and meclizine for the dizziness and self. Although, his ears were examined and found not to have any particular finding. CTA did demonstrate he had an 80% narrowing of the right ICA just past its origin. The left showed 50% and 50% on the posterior vertebral arteries themselves. These probably should be worked up further as it is described severe approximately 80% stenosis of the right ICA. He also needs to be worked up for his bradycardia. The patient apparently was seen by Dr. Ambriz, process safety specialist as well as Dr. Vela, neurologist respectively, ejection fraction greater than 50%. ALETHEA HUGHES MD DR: YOMAIRA/cruz JOB#: [id number] / [id number]
[2018-07-12] MEDS ORDERED: PANTOPRAZOLE 40 MG TABLET. PO SCH (21:00)
[2018-07-13] MEDS ORDERED: PANTOPRAZOLE 40 MG TABLET. PO SCH (07:30)
== END 2018-07-12 16:05 | disposition home or self-care (01) | DRG 66 ==
LOC: ER 10:08 → 1 SOUTH 12:35
PROVIDERS: ADMIT Internal Medicine; ATTEND Family Medicine
DX: I63.9 Cerebral infarction, unspecified (principal); I44.7 Left bundle-branch block, unspecified; I95.9 Hypotension, unspecified; I25.10 Atherosclerotic heart disease of native coronary artery without angina pectoris; E78.5 Hyperlipidemia, unspecified; F43.10 Post-traumatic stress disorder, unspecified; I10 Essential (primary) hypertension; J44.9 Chronic obstructive pulmonary disease, unspecified; M17.0 Bilateral primary osteoarthritis of knee; Z79.02 Long term (current) use of antithrombotics/antiplatelets; Z79.899 Other long term (current) drug therapy; Z82.5 Family history of asthma and other chronic lower respiratory diseases; Z85.828 Personal history of other malignant neoplasm of skin; Z95.5 Presence of coronary angioplasty implant and graft; Z98.1 Arthrodesis status; F32.9 Major depressive disorder, single episode, unspecified; F41.9 Anxiety disorder, unspecified; G89.29 Other chronic pain; I65.21 Occlusion and stenosis of right carotid artery
CPT/HCPCS: 36415; 70450; 70496; 70498; 71045; 80048; 80053; 80061; 82553; 83735; 84443; 84484; 85025; 85379; 85610; 85730; 93005; 93306; 94640; 96360; J1644; J7620; Q9967; 99285-25; J7030